=== PATIENT | female | born 1995 | race Caucasian/White ===

== ENCOUNTER 2018-06-17 21:25 | Emergency (ER) | payer MEDICAID ==
[~2018-06-17] VITALS: Ht 157.5 cm; Wt 59.0 kg
[2018-06-17 21:33] VITALS: BP 110/64
--- NOTE | 2018-06-17 21:36 | NUR ---
TO BED # 4 AMBULATORY, REPORT GIVEN TO SAMPSON NORRIS
--- NOTE | 2018-06-17 21:40 | NUR ---
PT CAME IN WITH C/O PAIN CISNEROS. PERRLA. NO DIZZINESS. FAMILY AT [email or web address].HAD SOME N/V/ PRIOR TO ER VISIT; SKIN IS PINK/WARM/DRY; AAOX4 WITH EVEN AND STEADY GAIT; HR EVEN AND REGULAR; PATIENT STATES PAIN OF 6/10 AT THIS TIME; VSS; PATIENT POSITIONED FOR COMFORT; HOB ELEVATED; BEDRAILS UP X2; BED DOWN. ER MD MADE AWARE OF PT STATUS.
[2018-06-17] MEDS ORDERED: NACL 0.9% 1,000 ML IV ONE (22:08)
[2018-06-17] MEDS ORDERED: METOCLOPRAMIDE 10 MG/2 ML INJ VIAL IVP ONE (22:10)
[2018-06-17] MEDS ORDERED: KETOROLAC 30 MG/ML VIAL IVP ONE (22:10)
[2018-06-17] MEDS ORDERED: diphenhydrAMINE 50 MG/ML VIAL IVP ONE (22:10)
--- NOTE | 2018-06-17 22:33 | NUR ---
PT RETURN FROM CT
[2018-06-17 23:30] VITALS: BP 110/64
--- NOTE | 2018-06-17 23:30 | NUR ---
Patient discharged with v/s stable. Written and verbal after care instructions given and explained. Patient alert, oriented and verbalized understanding of instructions. Ambulatory with steady gait. All questions addressed prior to discharge. ID band removed. Patient advised to follow up with PMD. Rx of REGLAN AND FIORICET WERE given. Patient educated on indication of medication including possible reaction and side effects. Opportunity to ask questions provided and answered.
== END 2018-06-17 23:30 | disposition home or self-care (01) ==
LOC: MED 21:25
DX: R51 Headache (principal); R11.0 Nausea
CPT/HCPCS: 70450; 81002; 81025; 96361; 96374; 96375; 99284; J1200; J1885; J2765; J7030